=== PATIENT | male | born 1955 | race Hispanic/Latino ===

== ENCOUNTER 2017-07-15 16:58 | Emergency (ER) | payer BC ==
[2017-07-15 17:38] LABS: BASOPHILS % (AUTO) 0.6 % (0.0-5.0); EOSINOPHILS % (AUTO) 2.5 % (0.0-8.0); HEMATOCRIT 45.3 % (42-54); MEAN CORPUSCULAR HGB CONC 33.8 g/dL (32.0-36.0); MEAN CORPUSCULAR VOLUME 82.8 fL (79-99); NEUTROPHILS % (AUTO) 63.9 % (40.0-77.0); PLATELET COUNT (AUTO) 205 K/uL (130-400); RED BLOOD CELL COUNT(AUTO) 5.46 MIL/uL (4.50-6.20); RED CELL DISTRIBUTION WIDTH 16.1 % (11.0-15.5); WHITE BLOOD COUNT (AUTO) 8.7 K/uL (4.8-10.8)
[2017-07-15 17:48] LABS: CREATININE 1.3 mg/dL (0.5-1.5); POTASSIUM 3.9 mmol/L (3.5-5.1)
[2017-07-15 17:55] LABS: ALBUMIN 3.5 g/dL (3.5-5.0); BILIRUBIN,TOTAL 0.5 mg/dL (0.2-1.0); CRP QUANTITATIVE 6.4 mg/L (0.00-9.0); TOTAL PROTEIN, SERUM 7.1 g/dL (6.0-8.3)
[2017-07-15] MEDS ORDERED: KETOROLAC TROMETHAMINE 30MG/ML ONE (18:31)
[2017-07-15 18:57] LABS: ERYTHROCYTE SEDIMENTATION RATE 8 MM/HR (0-15)
== END 2017-07-15 19:04 | disposition home or self-care (01) ==
LOC: EDH 16:58
DX: M10.9 Gout, unspecified (principal); I10 Essential (primary) hypertension; E78.5 Hyperlipidemia, unspecified; I25.10 Atherosclerotic heart disease of native coronary artery without angina pectoris; Z98.890 Other specified postprocedural states; Z87.891 Personal history of nicotine dependence
CPT/HCPCS: 36415; 73660; 80053; 84550; 85025; 85651; 86140; 96374; 99285; J1885

== ENCOUNTER 2018-07-04 16:21 | Emergency (ER) | payer BC | END 2018-07-04 16:47 | disposition home or self-care (01) | LOC: EDH 16:21 | DX: L03.116 Cellulitis of left lower limb (principal); I10 Essential (primary) hypertension; I25.10 Atherosclerotic heart disease of native coronary artery without angina pectoris; E78.5 Hyperlipidemia, unspecified; Z95.1 Presence of aortocoronary bypass graft ==

== ENCOUNTER 2020-05-14 09:41 | Emergency (ER) | payer BC ==
[~2020-05-14 09:41] MED LIST: ATOR40TA69 PO; LISI2.5T2 PO; METO-391 PO
[2020-05-14 10:12] LABS: BASOPHILS % (AUTO) 0.7 % (0.0-5.0); EOSINOPHILS % (AUTO) 3.9 % (0.0-8.0); HEMATOCRIT 45.7 % (42-54); LYMPHOCYTES % (AUTO) 27.4 % (21.0-51.0); MEAN CORPUSCULAR HEMOGLOBIN 28.5 pg (27.0-33.0); MEAN CORPUSCULAR HGB CONC 34.1 g/dL (32.0-36.0); MEAN CORPUSCULAR VOLUME 83.5 fL (79-99); NEUTROPHILS % (AUTO) 58.6 % (40.0-77.0); PLATELET COUNT (AUTO) 180 K/uL (130-400); RED BLOOD CELL COUNT(AUTO) 5.47 MIL/uL (4.50-6.20); RED CELL DISTRIBUTION WIDTH 13.9 % (11.0-15.5); WHITE BLOOD COUNT (AUTO) 7.4 K/uL (4.8-10.8)
[2020-05-14 10:14] LABS: APPEARANCE,URINE Clear (CLEAR); BILIRUBIN,URINE Negative (NEGATIVE); COLOR,URINE Yellow (YELLOW); GLUCOSE, URINE (UA) Negative (NEGATIVE); KETONES,URINE Negative (NEGATIVE); LEUKOCYTE ESTERASE ,URINE Negative (NEGATIVE); NITRATE,URINE Negative (NEGATIVE); OCCULT BLOOD,URINE Negative (NEGATIVE); PH,URINE 5.5 (5.0-8.0); PROTEIN,URINE Negative (NEGATIVE)
[2020-05-14 10:21] LABS: CREATININE 1.3 mg/dL (0.5-1.5); POTASSIUM 4.1 mmol/L (3.5-5.1)
[2020-05-14 10:26] LABS: ALBUMIN 3.8 g/dL (3.5-5.0); BILIRUBIN,TOTAL 0.7 mg/dL (0.2-1.0); TOTAL PROTEIN, SERUM 7.6 g/dL (6.0-8.3)
== END 2020-05-14 13:42 | disposition home or self-care (01) ==
LOC: EDH 09:41
DX: S29.012A Strain of muscle and tendon of back wall of thorax, initial encounter (principal); I10 Essential (primary) hypertension; E78.5 Hyperlipidemia, unspecified; I25.10 Atherosclerotic heart disease of native coronary artery without angina pectoris; Z87.891 Personal history of nicotine dependence; Z98.890 Other specified postprocedural states; X58.XXXA Exposure to other specified factors, initial encounter; Y93.89 Activity, other specified; Y92.89 Other specified places as the place of occurrence of the external cause; Y99.8 Other external cause status
CPT/HCPCS: 36415; 74176; 80053; 81003; 85025

== ENCOUNTER 2020-10-22 17:28 | Emergency (ER) | payer BC ==
[~2020-10-22] VITALS: Ht 180.3 cm; Wt 133.8 kg
[~2020-10-22 17:28] MED LIST changes: +LISI2.5T13 PO; -LISI2.5T2 PO
[2020-10-22 17:47] LABS: BASOPHILS % (AUTO) 0.5 % (0.0-5.0); EOSINOPHILS % (AUTO) 1.2 % (0.0-8.0); HEMATOCRIT 47.8 % (42-54); LYMPHOCYTES % (AUTO) 19.9 % (21.0-51.0); MEAN CORPUSCULAR HEMOGLOBIN 29.1 pg (27.0-33.0); MEAN CORPUSCULAR HGB CONC 34.7 g/dL (32.0-36.0); MEAN CORPUSCULAR VOLUME 83.7 fL (79-99); MONOCYTES % (AUTO) 7.4 % (3.0-13.0); NEUTROPHILS % (AUTO) 70.8 % (40.0-77.0); PLATELET COUNT (AUTO) 165 K/uL (130-400); RED BLOOD CELL COUNT(AUTO) 5.71 MIL/uL (4.50-6.20); RED CELL DISTRIBUTION WIDTH 13.2 % (11.0-15.5); WHITE BLOOD COUNT (AUTO) 8.1 K/uL (4.8-10.8)
[2020-10-22 17:51] VITALS: BP 145/84
[2020-10-22 17:59] LABS: CREATININE 1.2 mg/dL (0.5-1.5); POTASSIUM 4.4 mmol/L (3.5-5.1)
[2020-10-22 18:00] LABS: INR 1.17 (0.85-1.15); PROTHROMBIN TIME 12.6 SEC (9.6-11.6)
[2020-10-22 18:01] LABS: PARTIAL THROMBOPLASTIN TIME 28.2 SEC (26.3-35.5)
[2020-10-22 18:04] LABS: BILIRUBIN,TOTAL 1.1 mg/dL (0.2-1.0); TOTAL PROTEIN, SERUM 7.8 g/dL (6.0-8.3)
[2020-10-22 18:17] LABS: B-TYPE NATRIURETIC PEPTIDE 94 pg/mL (0-100)
[2020-10-22] MEDS ORDERED: FAMOTIDINE 20MG TAB PO ONE (19:00)
[2020-10-22] MEDS ORDERED: FAMOTIDINE 20MG TAB ONE (19:28)
[2020-10-22 19:49] VITALS: BP 127/76
[2020-10-22 19:53] LABS: APPEARANCE,URINE Clear (CLEAR); BILIRUBIN,URINE Negative (NEGATIVE); COLOR,URINE Yellow (YELLOW); GLUCOSE, URINE (UA) >=1000 mg/dL (NEGATIVE); KETONES,URINE 15 mg/dL (NEGATIVE); LEUKOCYTE ESTERASE ,URINE Negative (NEGATIVE); NITRATE,URINE Negative (NEGATIVE); OCCULT BLOOD,URINE Negative (NEGATIVE); PH,URINE 5.5 (5.0-8.0); PROTEIN,URINE Negative (NEGATIVE)
[2020-10-22 20:01] LABS: AMPHET/METH SCREEN,URINE NEGATIVE (NEGATIVE); BARBITURATE SCREEN, URINE NEGATIVE (NEGATIVE); BENZODIAZEPINES SCREEN,URINE NEGATIVE (NEGATIVE); CANNABINOID SCREEN,URINE NEGATIVE (NEGATIVE); COCAINE SCREEN,URINE NEGATIVE (NEGATIVE); OPIATE SCREEN,URINE NEGATIVE (NEGATIVE); PHENCYCLIDINE SCREEN,URINE NEGATIVE (NEGATIVE)
[2020-10-22 20:16] LABS: RBC,URINE 0-1 /HPF (0-1); WBC,URINE 0-1 /HPF (0-1)
[2020-10-22 20:17] LABS: BACTERIA,URINE Rare /HPF (None Seen); MUCUS,URINE Few LPF (None Seen); SQUAMOUS EPITHELIAL CELL,UR Rare /HPF (0-2)
[2020-10-22] MEDS ORDERED: FAMO-136 PO (22:28)
[2020-10-22 22:38] VITALS: BP 129/72
== END 2020-10-22 22:45 | disposition home or self-care (01) ==
LOC: EDH 17:28
DX: R14.0 Abdominal distension (gaseous) (principal); R14.2 Eructation; E11.9 Type 2 diabetes mellitus without complications; E78.00 Pure hypercholesterolemia, unspecified; Z79.899 Other long term (current) drug therapy; Z86.711 Personal history of pulmonary embolism; Z95.1 Presence of aortocoronary bypass graft
CPT/HCPCS: 36415; 71045; 80053; 80305; 81001; 82550; 83880; 84484; 85025; 85610; 85730; 93005

== ENCOUNTER 2021-12-17 22:36 | Inpatient (IN) | payer BC ==
[~2021-12-17] VITALS: Ht 180.3 cm; Wt 140.6 kg
[~2021-12-17 22:36] MED LIST changes: +FAMO-136 PO
[2021-12-18 01:02] LABS: BASOPHILS % (AUTO) 0.5 % (0.0-5.0); EOSINOPHILS % (AUTO) 3.1 % (0.0-8.0); LYMPHOCYTES % (AUTO) 30.7 % (21.0-51.0); MEAN CORPUSCULAR HEMOGLOBIN 28.8 pg (27.0-33.0); MEAN CORPUSCULAR HGB CONC 33.6 g/dL (32.0-36.0); MEAN CORPUSCULAR VOLUME 85.9 fL (79-99); NEUTROPHILS % (AUTO) 57.2 % (40.0-77.0); PLATELET COUNT (AUTO) 185 K/uL (130-400); RED BLOOD CELL COUNT(AUTO) 5.24 MIL/uL (4.50-6.20); RED CELL DISTRIBUTION WIDTH 14.5 % (11.0-15.5); WHITE BLOOD COUNT (AUTO) 9.9 K/uL (4.8-10.8)
[2021-12-18 01:14] LABS: CREATININE 1.3 mg/dL (0.5-1.5); POTASSIUM 4.3 mmol/L (3.5-5.1)
[2021-12-18 01:21] LABS: ALBUMIN 3.8 g/dL (3.5-5.0); TOTAL PROTEIN, SERUM 7.3 g/dL (6.0-8.3)
[2021-12-18 01:22] LABS: B-TYPE NATRIURETIC PEPTIDE 97 pg/mL (0-100)
[2021-12-18] MEDS ORDERED: ASPIRIN 81MG CHEW TAB PO ONE (01:30)
[2021-12-18] MEDS ORDERED: ONDANSETRON 4MG INJ IVP PRN (02:30)
[2021-12-18] MEDS ORDERED: ENOXAPARIN SODIUM 40 MG/0.4 ML SYRINGE SQ SCH (02:30)
[2021-12-18] MEDS: HEPARIN 25,000 UNITS/250ML D5W 250 ML IV SCH (03:04)
[2021-12-18] MEDS ORDERED: HEPARIN 5,000 UNIT VIAL ONE (03:26)
[2021-12-18 03:42] LABS: INR 1.1 (0.85-1.15); PROTHROMBIN TIME 11.9 SEC (9.6-11.6)
[2021-12-18 03:43] LABS: PARTIAL THROMBOPLASTIN TIME 29.4 SEC (26.3-35.5)
[2021-12-18 04:00] VITALS: BP 156/98
[2021-12-18] MEDS: INSULIN HUMULIN R 100 UNIT/ML 3ML SQ SCH ×4 (04:22→20:36)
[2021-12-18 05:41] LABS: BASOPHILS % (AUTO) 0.4 % (0.0-5.0); EOSINOPHILS % (AUTO) 3.6 % (0.0-8.0); HEMATOCRIT 42.7 % (42-54); LYMPHOCYTES % (AUTO) 31.9 % (21.0-51.0); MEAN CORPUSCULAR HEMOGLOBIN 28.4 pg (27.0-33.0); MEAN CORPUSCULAR HGB CONC 32.8 g/dL (32.0-36.0); MEAN CORPUSCULAR VOLUME 86.6 fL (79-99); MONOCYTES % (AUTO) 7.2 % (3.0-13.0); NEUTROPHILS % (AUTO) 56.6 % (40.0-77.0); PLATELET COUNT (AUTO) 173 K/uL (130-400); RED BLOOD CELL COUNT(AUTO) 4.93 MIL/uL (4.50-6.20); RED CELL DISTRIBUTION WIDTH 14.5 % (11.0-15.5); WHITE BLOOD COUNT (AUTO) 9.1 K/uL (4.8-10.8)
[2021-12-18 05:51] LABS: CREATININE 1.2 mg/dL (0.5-1.5)
[2021-12-18 05:54] LABS: HEMOGLOBIN A1C 7.3 % (4.0-6.0)
[2021-12-18 05:55] LABS: MAGNESIUM 1.7 mg/dL (1.80-2.40)
[2021-12-18 08:00] VITALS: BP 140/86
[2021-12-18] MEDS: ASPIRIN 81MG CHEW TAB PO SCH (08:55)
[2021-12-18] MEDS ORDERED: ASPI-1443 PO (11:15)
[2021-12-18] MEDS ORDERED: APIX5TAB PO (11:15)
[2021-12-18] MEDS ORDERED: METF-444 PO (11:15)
[2021-12-18 12:00] VITALS: BP 127/75
[2021-12-18] MEDS: MAGNESIUM 2GM PREMIX 50ML 50 ML IV SCH (12:15)
[2021-12-18 16:00] VITALS: BP 120/89
[2021-12-18 20:10] VITALS: BP 126/78
[2021-12-18] MEDS: ATORVASTATIN 40 MG TABLET PO SCH (20:36)
[2021-12-18] MEDS: ACETAMINOPHEN 325 MG TAB PO PRN (22:19)
[2021-12-18 23:25] VITALS: BP 115/78
[2021-12-19 03:20] VITALS: BP 115/80
[2021-12-19 03:36] LABS: HEMATOCRIT 44.2 % (42-54); MEAN CORPUSCULAR HEMOGLOBIN 28.6 pg (27.0-33.0); MEAN CORPUSCULAR HGB CONC 33.5 g/dL (32.0-36.0); MEAN CORPUSCULAR VOLUME 85.3 fL (79-99); RED BLOOD CELL COUNT(AUTO) 5.18 MIL/uL (4.50-6.20); RED CELL DISTRIBUTION WIDTH 14.5 % (11.0-15.5); WHITE BLOOD COUNT (AUTO) 8.4 K/uL (4.8-10.8)
[2021-12-19 03:48] LABS: INR 1.15 (0.85-1.15); PROTHROMBIN TIME 12.4 SEC (9.6-11.6)
[2021-12-19 04:05] LABS: CREATININE 1.1 mg/dL (0.5-1.5)
[2021-12-19 04:28] LABS: PARTIAL THROMBOPLASTIN TIME 115.7 SEC (26.3-35.5)
[2021-12-19] MEDS: HEPARIN 25,000 UNITS/250ML D5W 250 ML IV SCH (05:27)
[2021-12-19] MEDS: INSULIN HUMULIN R 100 UNIT/ML 3ML SQ SCH ×4 (06:41→20:31)
[2021-12-19 07:00] VITALS: BP 110/78
[2021-12-19 08:58] LABS: INR 1.13 (0.85-1.15); PROTHROMBIN TIME 12.2 SEC (9.6-11.6)
[2021-12-19] MEDS: METOPROLOL SUCCINATE 50 MG TAB.SR.24H PO SCH (09:24)
[2021-12-19] MEDS: CLOPIDOGREL 75MG TAB PO SCH (09:24)
[2021-12-19] MEDS: ASPIRIN 81MG CHEW TAB PO SCH (09:24)
[2021-12-19] MEDS: LISINOPRIL 2.5 MG TABLET PO SCH (09:24)
[2021-12-19] MEDS: MAGNESIUM 2GM PREMIX 50ML 50 ML IV SCH (09:27)
[2021-12-19 11:00] VITALS: BP 110/77
[2021-12-19 16:00] VITALS: BP 123/85
[2021-12-19] MEDS: ATORVASTATIN 40 MG TABLET PO SCH (20:07)
[2021-12-19 20:16] VITALS: BP 125/89
[2021-12-19 23:39] VITALS: BP 133/68
[2021-12-20] VITALS (14 sets, daily range): BP systolic 91–134; BP diastolic 50–88
[2021-12-20] MEDS: INSULIN HUMULIN R 100 UNIT/ML 3ML SQ SCH ×4 (06:00→20:20)
[2021-12-20] MEDS ORDERED: LIDOCAINE HCL 1% 20 ML VIAL ONE (07:05)
[2021-12-20] MEDS ORDERED: HEPARIN 1,000 UNIT VIAL ONE (07:06)
[2021-12-20] MEDS ORDERED: NITROGLYCERIN 50MG VIAL ONE (07:06)
[2021-12-20] MEDS ORDERED: IOHEXOL 350 MG/ML 100ML INFUS..BTL IV ONE (07:06)
[2021-12-20] MEDS ORDERED: IOHEXOL-350 75 ML VIAL IV ONE (07:34)
[2021-12-20] MEDS: ASPIRIN 81MG CHEW TAB PO SCH (09:38)
[2021-12-20] MEDS: ISOSORBIDE MONO 30MG SR TAB PO SCH (09:39)
[2021-12-20] MEDS: RANOLAZINE 500 MG TAB.SR.12H PO SCH ×2 (09:39→20:03)
[2021-12-20] MEDS: METOPROLOL SUCCINATE 50 MG TAB.SR.24H PO SCH (09:39)
[2021-12-20] MEDS: LISINOPRIL 2.5 MG TABLET PO SCH (09:40)
[2021-12-20] MEDS: 0.9%NACL 10ML VIAL IVP SCH ×2 (09:40→19:55)
[2021-12-20] MEDS: CLOPIDOGREL 75MG TAB PO SCH (09:41)
[2021-12-20] MEDS: MAGNESIUM 2GM PREMIX 50ML 50 ML IV SCH (10:30)
[2021-12-20] MEDS: ACETAMINOPHEN 325 MG TAB PO PRN (13:58)
[2021-12-20] MEDS: ATORVASTATIN 40 MG TABLET PO SCH (20:03)
[2021-12-21 00:08] VITALS: BP 114/70
[2021-12-21] MEDS: 0.9%NACL 10ML VIAL IVP SCH ×2 (00:20→08:22)
[2021-12-21 04:11] VITALS: BP 108/60
[2021-12-21] MEDS: INSULIN HUMULIN R 100 UNIT/ML 3ML SQ SCH ×2 (05:54→11:30)
[2021-12-21 08:00] VITALS: BP 101/60
[2021-12-21] MEDS ORDERED: NITROGLYCERIN 0.4 MG SL TAB SL PRN (08:00)
[2021-12-21] MEDS: ISOSORBIDE MONO 30MG SR TAB PO SCH (08:21)
[2021-12-21] MEDS: LISINOPRIL 2.5 MG TABLET PO SCH (08:22)
[2021-12-21] MEDS: RANOLAZINE 500 MG TAB.SR.12H PO SCH (08:22)
[2021-12-21] MEDS: ASPIRIN 81MG CHEW TAB PO SCH (08:22)
[2021-12-21] MEDS: METOPROLOL SUCCINATE 50 MG TAB.SR.24H PO SCH (08:22)
[2021-12-21 11:46] VITALS: BP 112/64
[2021-12-21 13:47] LABS: HEMATOCRIT 45.3 % (42-54); MEAN CORPUSCULAR HEMOGLOBIN 28.7 pg (27.0-33.0); MEAN CORPUSCULAR HGB CONC 33.6 g/dL (32.0-36.0); MEAN CORPUSCULAR VOLUME 85.6 fL (79-99); RED BLOOD CELL COUNT(AUTO) 5.29 MIL/uL (4.50-6.20); RED CELL DISTRIBUTION WIDTH 14.5 % (11.0-15.5); WHITE BLOOD COUNT (AUTO) 9.8 K/uL (4.8-10.8)
[2021-12-21 13:57] LABS: CREATININE 1.5 mg/dL (0.5-1.5); MAGNESIUM 2.1 mg/dL (1.80-2.40)
[2021-12-21] MEDS ORDERED: ISOS30TA92 PO (14:49)
[2021-12-21] MEDS ORDERED: NITR0.4T50 SL (14:49)
[2021-12-21] MEDS ORDERED: RANO500T2 PO (14:49)
[2021-12-23] MEDS ORDERED: APIXABAN 5 MG TABLET PO SCH (09:00)
== END 2021-12-21 15:00 | disposition home or self-care (01) | DRG 281 ==
LOC: EDH 22:36 → EDHIP 12-18 01:48 → 2AH 12-18 03:46
PROVIDERS: ADMIT Internal Medicine Infectious Disease; ATTEND Internal Medicine Infectious Disease
PROC: 4A023N7 Measurement of Cardiac Sampling and Pressure, Left Heart, Percutaneous Approach (ICD-10-PCS; principal; 2021-12-20)
PROC: B2111ZZ Fluoroscopy of Multiple Coronary Arteries using Low Osmolar Contrast (ICD-10-PCS; 2021-12-20)
PROC: B2151ZZ Fluoroscopy of Left Heart using Low Osmolar Contrast (ICD-10-PCS; 2021-12-20)
PROC: B2131ZZ Fluoroscopy of Multiple Coronary Artery Bypass Grafts using Low Osmolar Contrast (ICD-10-PCS; 2021-12-20)
DX: I21.4 Non-ST elevation (NSTEMI) myocardial infarction (principal); Z68.41 Body mass index [BMI] 40.0-44.9, adult; E11.9 Type 2 diabetes mellitus without complications; Z20.822 Contact with and (suspected) exposure to COVID-19; E78.00 Pure hypercholesterolemia, unspecified; I25.709 Atherosclerosis of coronary artery bypass graft(s), unspecified, with unspecified angina pectoris; Z95.1 Presence of aortocoronary bypass graft; E66.01 Morbid (severe) obesity due to excess calories; E87.6 Hypokalemia; I50.9 Heart failure, unspecified; I11.0 Hypertensive heart disease with heart failure; Z96.653 Presence of artificial knee joint, bilateral; I25.2 Old myocardial infarction; Z91.199 Patient's noncompliance with other medical treatment and regimen due to unspecified reason; Z86.711 Personal history of pulmonary embolism; Z79.01 Long term (current) use of anticoagulants
CPT/HCPCS: 36415; 71045; 80048; 80053; 80061; 82550; 82948; 83036; 83735; 83874; 83880; 84484; 85025; 85027; 85378; 85610; 85730; 87635; 87804; 87880; 93005; 93306; 93459; 99291; C1769; C1894; C9803; G0378; J1644; J3475; J3490; Q9967